=== PATIENT | female | born 2005 | race African-American/Black ===

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

== ENCOUNTER 2023-02-04 16:17 | Emergency (ER) | payer MEDICAID ==
[~2023-02-04] VITALS: Ht 157.5 cm; Wt 45.4 kg
[2023-02-04] MEDS ORDERED: BACITRACIN 0.9 GM PACKET OINTMENT TP ONE (18:00)
[2023-02-04] MEDS ORDERED: LIDOCAINE 1% 10 ML VIAL SQ ONE (18:00)
[2023-02-04] MEDS ORDERED: BACL10TA PO (18:27)
[2023-02-04] MEDS ORDERED: PENI500T2 PO (18:27)
[2023-02-04] MEDS ORDERED: IBUP-1554 PO ×2 (18:27→18:30)
[2023-02-04] MEDS ORDERED: ACET-2247 PO (18:30)
[2023-02-04 18:50] VITALS: BP 126/81; PULSE 72; RESP 15; TEMP 97.3
== END 2023-02-04 18:59 | disposition home or self-care (01) ==
LOC: EMS 16:20
DX: S01.511A Laceration without foreign body of lip, initial encounter (principal); S13.4XXA Sprain of ligaments of cervical spine, initial encounter; F12.90 Cannabis use, unspecified, uncomplicated; V89.2XXA Person injured in unspecified motor-vehicle accident, traffic, initial encounter; Y93.89 Activity, other specified; Y92.89 Other specified places as the place of occurrence of the external cause; Y99.8 Other external cause status
CPT/HCPCS: 99283; 12011; J3490

== ENCOUNTER 2023-02-10 08:16 | Emergency (ER) | payer MEDICAID ==
[~2023-02-10] VITALS: Ht 157.5 cm; Wt 45.5 kg
[~2023-02-10 08:16] MED LIST changes: +ACET-2247 PO; +BACL10TA PO; +IBUP-1554 PO; -NOCURR; +PENI500T2 PO
[2023-02-10 08:21] VITALS: BP 105/75; PULSE 68; RESP 18; TEMP 98.4
== END 2023-02-10 09:00 | disposition home or self-care (01) ==
LOC: EMS 08:17
DX: S01.512D Laceration without foreign body of oral cavity, subsequent encounter (principal); F12.90 Cannabis use, unspecified, uncomplicated; Z48.02 Encounter for removal of sutures; Z91.013 Allergy to seafood; V89.2XXD Person injured in unspecified motor-vehicle accident, traffic, subsequent encounter
CPT/HCPCS: 99282; Z7502